=== PATIENT | male | born 1965 | race Caucasian/White ===

== ENCOUNTER 2018-01-12 15:34 | Emergency (ER) | payer SELFPAY ==
[~2018-01-12] VITALS: Ht 180.3 cm; Wt 97.7 kg
[2018-01-12 15:56] VITALS: BP 166/102; Ht 180.3 cm; Wt 97.7 kg
== END 2018-01-12 18:32 | disposition left against medical advice (07) ==
LOC: D.ER 15:34
DX: M25.512 Pain in left shoulder (principal)

== ENCOUNTER 2018-12-08 12:16 | Emergency (ER) | payer SELFPAY ==
[~2018-12-08] VITALS: Ht 180.3 cm; Wt 100.0 kg
[2018-12-08 13:10] VITALS: Ht 180.3 cm; Wt 100.0 kg
[2018-12-08] MEDS ORDERED: VOLTAREN75 MG PO (14:58)
[2018-12-08] MEDS ORDERED: BACLOFEN20 M1 PO (14:58)
[2018-12-08 16:25] VITALS: BP 153/80
== END 2018-12-08 16:31 | disposition home or self-care (01) ==
LOC: D.ER 12:16
DX: S16.1XXA Strain of muscle, fascia and tendon at neck level, initial encounter (principal); S13.9XXA Sprain of joints and ligaments of unspecified parts of neck, initial encounter; V89.1XXA Person injured in unspecified nonmotor-vehicle accident, nontraffic, initial encounter